=== PATIENT | male | born 1975 | race Caucasian/White ===

== ENCOUNTER 2017-05-28 17:54 | Emergency (ER) | payer OTHER ==
[~2017-05-28] VITALS: Ht 177.8 cm; Wt 109.1 kg
[2017-05-28] MEDS ORDERED: LISI-662 PO (18:06)
[2017-05-28] MEDS ORDERED: METF500T4 PO (18:06)
[2017-05-28 18:07] LABS: GLUCOSE,POINT OF CARE 248 MG/DL (70-110)
[2017-05-28 19:31] VITALS: BP 156/102
== END 2017-05-28 19:44 | disposition home or self-care (01) ==
LOC: EMS 17:55
DX: R05 Cough (principal); I10 Essential (primary) hypertension; E11.9 Type 2 diabetes mellitus without complications; F15.90 Other stimulant use, unspecified, uncomplicated
CPT/HCPCS: 71046; 82962; 99284

== ENCOUNTER 2017-12-08 11:16 | Emergency (ER) | payer OTHER ==
[~2017-12-08] VITALS: Ht 177.8 cm; Wt 104.5 kg
[~2017-12-08 11:16] MED LIST: LISI-662 PO; METF500T6 PO
[2017-12-08 11:29] LABS: GLUCOSE,POINT OF CARE 320 MG/DL (70-110)
[2017-12-08 11:51] VITALS: BP 158/100
== END 2017-12-08 12:14 | disposition home or self-care (01) ==
LOC: EMS 11:17
DX: B07.9 Viral wart, unspecified (principal); E11.9 Type 2 diabetes mellitus without complications; I10 Essential (primary) hypertension; G43.909 Migraine, unspecified, not intractable, without status migrainosus; F20.9 Schizophrenia, unspecified; F19.90 Other psychoactive substance use, unspecified, uncomplicated; Z79.84 Long term (current) use of oral hypoglycemic drugs; Z79.899 Other long term (current) drug therapy
CPT/HCPCS: 99282